=== PATIENT | female | born 1940 | race Caucasian/White ===

== ENCOUNTER 2017-03-10 12:17 | Day surgery (SDC) | payer OTHER ==
[2017-03-08 10:53] LABS: HEMATOCRIT 36.6 % (36.0-48.0); HEMOGLOBIN 12.1 g/dL (12.0-16.0)
[2017-03-08 11:06] LABS: BUN (BLOOD UREA NITROGEN) 18 MG/DL (6-23); CHLORIDE, SERUM 103 MMOL/L (96-112); CO2 (CARBON DIOXIDE) 31 MMOL/L (24-34); CREATININE 1.32 MG/DL (0.55-1.02); GFR AFRICAN AMERICAN 45 ML/MIN (>=60); GFR NON AFRICAN AMERICAN 39 ML/MIN (>=60); GLUCOSE, SERUM 91 MG/DL (60-99); POTASSIUM, SERUM 3.7 MMOL/L (3.5-5.3); SODIUM, SERUM 144 MMOL/L (135-148)
--- NOTE | ~2017-03-10 | OP ---
Record Of Operation [facility] [address] [place]. [address] NAME: ALEXSANDRA HERRING : 36 STATUS : [facility]#: [id number] AGE: 76 ADM/REG DATE : 03/10/17 MR#: [id number] REPORT SERV DATE: 03/11/17 DICTATED BY: Teddy CHIN DATE: 03/11/17 REPORT STATUS : Draft TRANSCRIBED BY: JAY DATE: 03/11/17 DATE OF PROCEDURE: 03/10/2017 PREOPERATIVE DIAGNOSES: 1. Basal cell carcinoma of the nose. 2. Huge defect of the nose secondary to Mohs micrographic surgical excision of basal cell carcinoma of the nose. POSTOPERATIVE DIAGNOSES: 1. Basal cell carcinoma of the nose. 2. Huge defect of the nose secondary to Mohs micrographic surgical excision of basal cell carcinoma of the nose. 3. Lesion, right eyebrow, uncertain behavior, rule out atypia, permanent pathology pending. 4. Forehead skull mass, uncertain behavior, benign appearing, permanent path pending. PROCEDURES: 1. Surgical excisional preparation of nasal defect. 2. Reconstruction of the left nasal ala component of the defect with laterally based nasalis muscle myocutaneous flap, and left ear cartilage graft to left nasal ala. 3. Right paramedian forehead flap reconstruction of nose. 4. Upper nasal rotation flap closure of myocutaneous flap donor site. 5. Large scalp rotation flap closure of paramedian forehead flap donor site. 6. Excision of frontal skull mass. 7. Shave excision of right eyebrow lesion. FINDINGS: 5 cm wide by 3.6 cm tall defect of the nose involving 75% of the nose, including two through and through defects into the left nasal ala, and loss of the left nasal ala rim. INDICATIONS: This 76-year-old female underwent Mohs micrographic surgical excision of basal cell carcinoma of the nose this morning. At a separate consultation, we discussed the pros and cons, alternatives, benefits, risks, limitations, and complications of the anticipated defect following the Mohs surgery. I have received a photograph of the defect following today's excision and it is much more extensive than anticipated. She has not seen the defect. Her has not seen the defect. They did not want to see a photograph of the defect. In the preoperative area, I discussed the pros and cons, alternatives, benefits, risks, limitations, and complications that are associated with probable grafting with skin and cartilage and even more likely a forehead flap reconstruction. I discussed that this would be more likely two stages of reconstruction at least. They understand and wish to proceed. Proper consent obtained. No guarantees expressed. DESCRIPTION OF PROCEDURE: She was taken into the operating room and given general oral endotracheal anesthesia in the supine position. The dressing on her nose was removed revealing the large defect. There was full-thickness loss of the left nasal ala in the mid portion measuring approximately 1 cm. The entire nasal tip and supratip bilaterally along with the nasal dorsum had been excised. This extended also into the right nasofacial Record Of Operation [place] [id number] [facility] [place] [place] [id number] NAME: ALEXSANDRA HERRING : 36 STATUS : [facility] PAT#: [id number] AGE: 76 ADM/REG DATE : 03/10/17 MR#: [id number] REPORT SERV DATE: 03/11/17 DICTATED BY: Teddy CHIN DATE: 03/11/17 REPORT STATUS : Draft TRANSCRIBED BY: JAY DATE: 03/11/17 sulcus. The defect came to within 6 mm of the alar rim on the right. The entire face was prepped along with the left ear and neck with Hibiclens and saline followed by isopropyl alcohol. None of the alcohol got in the wound. The nostrils were cleansed with sterile Q- tips and Hibiclens and saline. Sterile drapes were applied exposing the left ear as well. Options were considered. There was loss of left alar cartilage and just a small layer of nasal vestibular lining, that had two holes through and through, one measuring 3 mm and the other measuring 4 mm. It was felt best that we could first reconstruct the left ala and then obtain a more symmetrical defect for placing a forehead flap. Due to the hairline and the size of the forehead, I felt that the extension of the forehead flap to reconstruct the left alar would put too much jeopardy on the flap as well as the flap would have to be angled on the forehead and that would decrease its vascularity and chances of success. Therefore, a left-sided, laterally based myocutaneous [place]-type flap was outlined. Because the nose did not actively bleed when prepped and had very little oozing, I felt that local injection should not be injected except for nerve blocks. Nerve blocks were done at the infraorbital nerve bilaterally, at the base of the ala bilaterally, and in the supraorbital nerve bilaterally with 0.5% Marcaine with 1:200,000 epinephrine. Attention was then turned back to the myocutaneous flap, which was incised with a #15 and elevated below the level of the muscle and above the level of the perichondrium and periosteum of the nasal skeleton. This was raised and then mobilized and it was felt that this would reconstruct the ala. First the defects into the nasal cavity, one was closed with interrupted 6-0 fast-absorbing gut and the other was left open to allow for any postoperative bleeding to drain out. The myocutaneous flap was then transposed into the alar rim defect and sutured in place with interrupted 6-0 Prolene. The dog-ear deformity laterally from the transposition was not excised in hopes that this would further enhance the vascularity and success of this and it would be excised at the second stage at the same time that the forehead flap was detached. (The patient had already had a left nasolabial flap and left alar reconstruction by another physician at another previous setting). This was either recurrence of tumor or new tumor from the flap that had been placed. Next, an ear cartilage graft from the left ear was obtained in the following fashion. The ear was injected with 0.5% Marcaine with 1:200,000 epinephrine. The conchal bowl was incised at the upper portion of its shoulder and then the skin elevated away from the cartilage to be harvested. This was done in the level above the perichondrium, preserving the perichondrium on the cartilage. On the posterior aspect, the perichondrium was also preserved. This cartilage was removed intact and placed in the left nasal ala immediately. A sponge was placed at the donor site. The cartilage was trimmed at the lateral aspect and a pocket was made to except the cartilage laterally to help secure it. It was secured medially to the opposite intact alar tip cartilage with two buried 6-0 PDS sutures. This gave good contour and support. The lining was secured further with two sutures of 6-0 PDS. The cartilage was anchored to prevent upward motion of the cartilage by securing it to the upper lateral cartilage with 6-0 PDS suture. The donor site of the left ear was closed with 6-0 Prolene followed by a through and through quilting suture of 6-0 Prolene to coapt the skin. Record Of Operation [facility] [address] [place] [address] NAME: ALEXSANDRA HERRING : 36 STATUS : [facility]#: [id number] AGE: 76 ADM/REG DATE : 03/10/17 MR#: [id number] REPORT SERV DATE: 03/11/17 DICTATED BY: Teddy CHIN DATE: 03/11/17 REPORT STATUS : Draft TRANSCRIBED BY: JAY DATE: 03/11/17 The nasalis muscle myocutaneous flap donor site was closed. This was large and was closed with developing bilateral nasal rotation flaps down to the inner canthus on both sides of the nose and rotating these flaps and securing them with 5-0 Vicryl deep and 6-0 Prolene on the skin. A back cut was made up at the rhinion to excise redundancy caused by these rotation flaps. These were closed with 6-0 Vicryl deep and 6-0 Prolene on the skin. At this point, the defect was smaller because of the nasalis muscle myocutaneous flap and the closure of the myocutaneous flap donor site. A template was made of the defect, which was now a more symmetrical defect. This template was made with a foil pack from the suture pack. This was then transposed to the forehead next to the hairline, trying to avoid any hair on the flap. It was felt that this flap would transfer to the nose without pulling it upward. A 1.5 cm pedicle was outlined in the paramedian area and extended vertically to the markings that had been made around the template in the upper paramedian forehead area. The Doppler was brought in and confirmed the location of a good vessel in this pedicle. The forehead flap was then incised with a #15 blade, bevelling it away from the pedicle until the area of the template outlined was reached and then it was a more vertical incision. This forehead flap was then raised in the subgaleal plane down to its origin. The flap was then placed over the defect and continual saline was kept on the flap and nasal defect. (It should be also mentioned that the cartilage that had been implanted on the left alar had also been kept moisturized with saline throughout the procedure). The forehead flap donor site was closed in the lower portion with 4-0 Vicryl. The mid and upper portion could not be closed and then wide flap development was accomplished over the entire forehead over the deep temporal fascia of the temporalis muscle a few centimeters above each ear. This allowed for enough mobility to close the upper forehead defect with 4- 0 and 3-0 Vicryl deep. The dog ear deformity in the scalp was excised and closed with stainless steel hemant. The center of the very defect would not hold deep sutures and the upper forehead was closed with stainless steel hemant. The forehead flap was then trimmed distally for approximately 1 cm to help the edges coapt. The beveled edges of the defect were surgically excisionally excised with a #15C blade to accept the edges properly from the forehead flap. The flap was sutured in place with interrupted 6-0 Prolene sparingly. It also should be mentioned that before the forehead flap was closed, there was a prominence on the forehead skull that is rarely seen. This was removed with the mallet and chisel and sent for permanent pathology. There was a large right lateral eyebrow lesion, which was shave excised and the base cauterized and this was sent for permanent pathology as well. The forehead flap was wrapped with Xeroform gauze, and Telfa was placed at the lateral ala and around the pedicle of the forehead flap. The left ear was treated with Xeroform and a sterile cotton ball, which was then secured Record Of Operation [facility] [address] [place]. [address] NAME: ALEXSANDRA HERRING : 36 STATUS : [facility] PAT#: [id number] AGE: 76 ADM/REG DATE : 03/10/17 MR#: [id number] REPORT SERV DATE: 03/11/17 DICTATED BY: Teddy CHIN DATE: 03/11/17 REPORT STATUS : Draft TRANSCRIBED BY: JAY DATE: 03/11/17 with Dermabond. A piece of Telfa was placed behind the left ear. The forehead was also treated with Mastisol and paper tape in an antitension fashion. She was awakened and extubated, and taken to the recovery room in good condition having tolerated the procedure well. Home going instructions included recheck in the office in five days. She is to avoid laughing, talking, smiling, chewing. She or her are to clean the sutures with Q-tip and peroxide and apply Neosporin ointment. She is to leave all tape intact. Prescriptions were given for hydrocodone, Zofran, and cephalexin. CRISTIANO/JAY Teddy Chin M.D. / [id number] CC: Tommy Prieto M.D.
[~2017-03-10 12:17] MED LIST: AMB10 PO; CALTRA600D PO; CYANO1000T PO; FISH-EPA1000 MG PO; PRILOSEC40 MG PO; PRIN10 PO; RESTASIS OPH; TOVIAZ PO; VESICARE10 MG PO; VITAMIN D400 UNI1 PO; X5 PO; ZOCOR40 PO
== END 2017-03-10 21:03 | disposition home or self-care (01) ==
LOC: SDC 12:17
PROVIDERS: Specialist
PROC: 09UK07Z Supplement Nasal Mucosa and Soft Tissue with Autologous Tissue Substitute, Open Approach (ICD-10-PCS; 2017-03-10)
PROC: 0HX1XZZ Transfer Face Skin, External Approach (ICD-10-PCS; 2017-03-10)
PROC: 0NB00ZX Excision of Skull, Open Approach, Diagnostic (ICD-10-PCS; 2017-03-10)
PROC: 0KX10ZZ Transfer Facial Muscle, Open Approach (ICD-10-PCS; 2017-03-10)
PROC: 0HB1XZZ Excision of Face Skin, External Approach (ICD-10-PCS; principal; 2017-03-10 13:15)
DX: M95.0 Acquired deformity of nose (principal); D23.39 Other benign neoplasm of skin of other parts of face; K21.9 Gastro-esophageal reflux disease without esophagitis; F17.210 Nicotine dependence, cigarettes, uncomplicated; E78.00 Pure hypercholesterolemia, unspecified; M19.90 Unspecified osteoarthritis, unspecified site; I10 Essential (primary) hypertension; Z90.710 Acquired absence of both cervix and uterus; Z98.41 Cataract extraction status, right eye; Z86.73 Personal history of transient ischemic attack (TIA), and cerebral infarction without residual deficits; Z98.42 Cataract extraction status, left eye; Z96.1 Presence of intraocular lens; Z98.890 Other specified postprocedural states
CPT/HCPCS: 80048; 85014; 85018; 88305; 88307; 93005; A9270-GY; J0690; J2250; J2270; J2405; J2710; J3010

== ENCOUNTER 2017-04-02 09:48 | Day surgery (SDC) | payer OTHER ==
[2017-03-30 13:44] LABS: HEMOGLOBIN 11.7 g/dL (12.0-16.0)
[2017-03-30 13:53] LABS: BUN (BLOOD UREA NITROGEN) 20 MG/DL (6-23); CALCIUM, SERUM 9.2 MG/DL (8.5-10.4); CHLORIDE, SERUM 103 MMOL/L (96-112); CO2 (CARBON DIOXIDE) 34 MMOL/L (24-34); CREATININE 1.45 MG/DL (0.55-1.02); GFR AFRICAN AMERICAN 40 ML/MIN (>=60); GFR NON AFRICAN AMERICAN 34 ML/MIN (>=60); GLUCOSE, SERUM 87 MG/DL (60-99); POTASSIUM, SERUM 3.9 MMOL/L (3.5-5.3); SODIUM, SERUM 140 MMOL/L (135-148)
--- NOTE | ~2017-04-02 | OP ---
Record Of Operation [facility] [address] [place]. [address] NAME: ALEXSANDRA HERRING : 36 STATUS : [facility]#: [id number] AGE: 77 ADM/REG DATE : 04/02/17 MR#: [id number] REPORT SERV DATE: 04/02/17 DICTATED BY: Teddy CHIN DATE: 04/02/17 REPORT STATUS : Draft TRANSCRIBED BY: JAY DATE: 04/02/17 DATE OF PROCEDURE: 04/02/2017 PREOPERATIVE DIAGNOSIS: Basal cell carcinoma of the nose, status post first stage reconstruction, following radical excision of basal cell carcinoma by Mohs micrographic surgical excision. POSTOPERATIVE DIAGNOSIS: Basal cell carcinoma of the nose, status post first stage reconstruction, following radical excision of basal cell carcinoma by Mohs micrographic surgical excision. Four raised lesions of the right chin, uncertain behavior, rule out atypia. NAME OF OPERATION: Second stage nasal reconstruction with thinning and rearrangement of forehead flap on the nose and left nasal alar debulking, thinning and flap rearrangement, including dermal fat tissue grafts to the left nasal alar rim. Shave excision 4 lesions of the left chin. FINDINGS: Thick forehead flap in place; myocutaneous left nasal alar flap with pedicle dog ear. Four raised lesions of the chin approximately 6 mm each in a cluster, and they were all approximately 3-4 mm raised. INDICATION: This 77-year-old female underwent Mohs micrographic surgical excision of basal cell carcinoma three and half weeks ago, and this resulted in a huge nasal defect involving 75% of her nose including loss of the left nasal alar rim and ala for approximately 7 mm deep and approximately 1.5 cm wide. She has undergone a forehead flap and nasalis muscle myocutaneous flap with a cartilage graft to left nostril. We now plan our intermediate second-stage reconstruction with thinning of the flap and rearrangement of the flap and further correction of the left nasal ala with flap thinning and rearrangement. She understands and wishes to proceed. Proper consent obtained. The pros and cons, alternatives, benefits, risks, limitations, and complications were discussed for our second-stage reconstruction. No guarantees expressed. Proper consent obtained. She wished to proceed. DESCRIPTION OF PROCEDURE: She was taken into the operating room and given general oral endotracheal anesthesia in supine position. Sterile prep was performed with Hibiclens and saline followed by isopropyl alcohol. Sterile drapes were applied. First, the left nasal alar myocutaneous flap was incised where it was twisted on itself and excess excised. It was then carefully thinned and the flap was rearranged. The nostril was retracted at the rim, and a pocket was made over the alar rim and soft-tissue dermis and fat as the tissue graft was then placed by placing a suture through the nostril rim and then through the tissue graft and then back out through the nostril rim, tying the suture along the nostril rim pulling the graft to the nostril rim subcutaneously. The wound was closed. The flap was rearranged and sutured in place with 6-0 Prolene loosely, allowing an area to Record Of Operation [address] [place]. [address] NAME: ALEXSANDRA HERRING : 36 STATUS : [facility] PAT#: [id number] AGE: 77 ADM/REG DATE : 04/02/17 MR#: [id number] REPORT SERV DATE: 04/02/17 DICTATED BY: Teddy CHIN DATE: 04/02/17 REPORT STATUS : Draft TRANSCRIBED BY: JAY DATE: 04/02/17 be opened to allow for drainage and to prevent excess scar tissue in the new alar crease area. A plastic "button" was made to fit on the inside the nostril and a plastic V-shaped "button" was placed on the outside in the alar crease, and this was sewn through and through with a 5-0 Prolene suture to act as a compression to help keep these flaps down and to hopefully create a new alar crease. The forehead flap on the nose was incised on the right side starting from the facet area and traveling up to the attachment of the floor of flap to the nose. This was carefully raised with approximately 3-4 mm of fat on the flap. After this was raised all the way over to the left side where it had been sutured to the myocutaneous flap into the lateral nasal sidewall, the remaining soft tissue of fat and muscle and the galea was then carefully excised from the nasal skeleton to give the definition to the nose. The flap was rearranged to eliminate the twist of the nose and sutured back in place with interrupted 6-0 Prolene as well as quilting sutures of 6-0 Prolene that went through and through into the nasal cavity and back out as quilting sutures. The hemostasis was excellent. She had four raised lesions on the left chin that were clustered together. We called her , and he agreed that we could remove these. I felt it was boyce because of her history of cancer and to be sure that these are not cancers. They were all injected with 1% Xylocaine with 1:100,000 epinephrine and shave excised. The base was cauterized. They were sent as lesion 1, lesion 2, lesion 3, lesion #4. This was from right to the left top to bottom. The base was lightly cauterized. Mastisol and paper tape were applied in antitension fashion. A small piece of Telfa was placed over the nose and taped in place with Micropore tape. She was awakened and extubated and taken to the recovery room in good condition having tolerated procedure well. Home going instructions include keeping the dressing in place until tomorrow and then she can begin utilizing her anti-bacterial ointment and Q-Tips and peroxide as she had been doing for the last three weeks. She is to see me back in the office in 6 days. She has prescriptions already for cephalexin, Phenergan, and hydrocodone at home. CRISTIANO/JAY Teddy Chin M.D. / [id number] CC: Tommy Prieto M.D.
== END 2017-04-02 21:10 | disposition home or self-care (01) ==
LOC: SDC 09:48
PROVIDERS: Specialist
PROC: 0HX1XZZ Transfer Face Skin, External Approach (ICD-10-PCS; 2017-04-02)
PROC: 0HB1XZZ Excision of Face Skin, External Approach (ICD-10-PCS; 2017-04-02)
PROC: 09UK07Z Supplement Nasal Mucosa and Soft Tissue with Autologous Tissue Substitute, Open Approach (ICD-10-PCS; principal; 2017-04-02 12:00)
DX: M95.0 Acquired deformity of nose (principal); D23.39 Other benign neoplasm of skin of other parts of face; E78.00 Pure hypercholesterolemia, unspecified; I12.9 Hypertensive chronic kidney disease with stage 1 through stage 4 chronic kidney disease, or unspecified chronic kidney disease; K21.9 Gastro-esophageal reflux disease without esophagitis; N18.3 Chronic kidney disease, stage 3 (moderate); D64.9 Anemia, unspecified; Z86.73 Personal history of transient ischemic attack (TIA), and cerebral infarction without residual deficits; Z80.1 Family history of malignant neoplasm of trachea, bronchus and lung; Z79.52 Long term (current) use of systemic steroids; Z79.899 Other long term (current) drug therapy; Z98.41 Cataract extraction status, right eye; Z98.42 Cataract extraction status, left eye; Z98.890 Other specified postprocedural states; Z90.710 Acquired absence of both cervix and uterus
CPT/HCPCS: 80048; 85014; 85018; 88305; 93005; A9270-GY; J0690; J2405; J2710; J3010

== ENCOUNTER 2017-04-24 14:00 | Day surgery (SDC) | payer OTHER ==
[2017-04-22 12:09] LABS: HEMATOCRIT 32.2 % (36.0-48.0); HEMOGLOBIN 10.8 g/dL (12.0-16.0)
[2017-04-22 12:21] LABS: BUN (BLOOD UREA NITROGEN) 21 MG/DL (6-23); CALCIUM, SERUM 8.7 MG/DL (8.5-10.4); CHLORIDE, SERUM 104 MMOL/L (96-112); CO2 (CARBON DIOXIDE) 30 MMOL/L (24-34); CREATININE 1.66 MG/DL (0.55-1.02); GFR AFRICAN AMERICAN 34 ML/MIN (>=60); GFR NON AFRICAN AMERICAN 29 ML/MIN (>=60); GLUCOSE, SERUM 90 MG/DL (60-99); SODIUM, SERUM 142 MMOL/L (135-148)
--- NOTE | ~2017-04-24 | OP ---
Record Of Operation [facility] [address] [place]. [address] NAME: ALEXSANDRA HERRING : 36 STATUS : [facility]#: [id number] AGE: 77 ADM/REG DATE : 04/24/17 MR#: [id number] REPORT SERV DATE: 04/29/17 DICTATED BY: Teddy CHIN DATE: 04/29/17 REPORT STATUS : Draft TRANSCRIBED BY: JAY DATE: 04/29/17 DATE OF PROCEDURE: 04/24/2017 PREOPERATIVE DIAGNOSES: 1. Basal cell carcinoma of the nose. 2. Huge defect of the nose secondary to Mohs micrographic surgical excision of basal cell carcinoma. 3. Status post stage one and second intermediate stage reconstruction of the nose, now presenting for third stage reconstruction. 4. Multiple facial lesions, uncertain behavior, rule out atypia. POSTOPERATIVE DIAGNOSES: 1. Basal cell carcinoma of the nose. 2. Huge defect of the nose secondary to Mohs micrographic surgical excision of basal cell carcinoma. 3. Status post stage one and second intermediate stage reconstruction of the nose, now presenting for third stage reconstruction. 4. Multiple facial lesions, uncertain behavior, rule out atypia. NAME OF OPERATION: 1. Division and inset of right paramedial forehead flap on the nose, with flap thinning and flap rearrangement. 2. Surgical excisional preparation of nasal recipient site. 3. Left nasal alar flap rearrangement in the area of the left alar crease, where previous myocutaneous flap reconstruction had been performed at stages I and stage II. 4. Forehead flap pedicle donor site reconstruction with glabellar rotation flap to correct eyebrow asymmetry and obtain closure. 5. Shave excision lesions of the left lateral alevism, left mid forehead, right forehead near brow, right mid-mandibular border, right medial inferior orbital rim, left medial cheek, edge of forehead flap near the alar crease, and left mid nasal dorsum of the forehead flap. FINDINGS: Viable forehead flap in place; effaced left alar crease; multiple facial lesions with crusting and suspicion for atypia. INDICATIONS: This 77-year-old female underwent Mohs micrographic surgery to remove basal cell carcinoma of the nose approximately 6 weeks ago. This resulted in a huge defect of the nose including loss of the left alar margin. She underwent a first-stage reconstruction with a left-sided [place] type myocutaneous flap and ear cartilage graft along with a right paramedian forehead flap. Approximately three and half weeks ago, she underwent her second intermediate stage II thinning and rearranged the forehead flap. She now presents for her third and possibly final stage of nasal reconstruction with attachment of the forehead flap, thinning of the forehead flap, and rearrangement of forehead flap along with removal of multiple facial lesions that are suspicious. The pros and cons, alternatives, benefits, risks, limitations, and complications were discussed at length with the patient. No guarantees expressed. She understands and wished to proceed. Proper consent obtained. Record Of Operation [facility] [id number] [facility] [place]. [address] NAME: ALEXSANDRA HERRING : 36 STATUS : [facility]#: [id number] AGE: 77 ADM/REG DATE : 04/24/17 MR#: [id number] REPORT SERV DATE: 04/29/17 DICTATED BY: Teddy CHIN DATE: 04/29/17 REPORT STATUS : Draft TRANSCRIBED BY: JAY DATE: 04/29/17 DESCRIPTION OF PROCEDURE: She was taken into the operating room and given general oral endotracheal anesthesia in the supine position. The nose was prepped meticulously with Hibiclens and saline except near the areas where it would get possibly in her eyes and that was done with dilute Betadine "Tea" (Betadine solution mixed with saline). The nostrils were likewise prepped with these solutions followed by isopropyl alcohol. None of these solutions got in her eyes. Sterile drapes were applied. It should be noted that the upper neck bilaterally was prepped as well. She had multiple facial lesions that were suspicious for atypia and since she has had such extensive cancer of her nose, it is boyce to remove these other lesions for pathological diagnosis. These were all marked with a marking pen, and they were shave excised and the base cauterized and sent for permanent pathology. They had been injected with 1% Xylocaine with 1:100,000 epinephrine prior to removal. They were all sent in properly labeled containers for permanent pathology. The locations were mentioned in the procedure portion of the operative summary above. Next, the forehead flap pedicle was divided. The stump was cauterized approximately 1.5 cm from its origin. Next, the forehead flap incision as it was healing on the nose was incised from the area of the medial right nasal alar crease up the nasal sidewall. The left nasal sidewall was also incised and the forehead flap uncurled and raised for approximately 50% of the flap. It was systematically thinned. The recipient site was treated with #15 blade to create new fresh margins for proper closure of the detached forehead flap to the nasal skin. The flap was incrementally trimmed and rearranged and rotated to allow this to sit in nicely into the reconstructive nose. The soft tissue and fibrous tissue and cicatrix were excised down to the nasal bony and cartilaginous skeleton. Oozing was steady throughout indicating good blood supply had been obtained through ingrowth of blood vessels from the nose into the flap. The flap was trimmed appropriately and then sutured in place with interrupted 6-0 Prolene. Hemostasis was excellent at this time with just gentle pressure. The base of the pedicle reconstruction was then undertaken. The stump was resected. A medial glabellar rotation flap was developed approximately 1 cm x 2.5 cm. This was rotated in a fashion to allow the brow to match the other brow. Hemostasis was obtained with electrocautery. The flaps were sewn together with 6-0 Vicryl deep and 6-0 Prolene on the skin. This excision went down to the root of the nose on the right. The wounds were cleansed with hydrogen peroxide. Mastisol and paper tape covered all the shave excision of skin lesions. The nose was treated with Mastisol paper tape, nasal metal splint, and paper tape securing this in place. The skin edges of the glabellar flap were coapted with 6-0 Prolene. Mastisol and paper tape were applied in that area as well. Prior to placing the tape and splint, the left nasal alar area was addressed. The alar crease had been effaced by the myocutaneous flap. The crease was now ready to be redefined. Record Of Operation [facility] [address] [facility] [place]. [address] NAME: ALEXSANDRA HERRING : 36 STATUS : [facility]#: [id number] AGE: 77 ADM/REG DATE : 04/24/17 MR#: [id number] REPORT SERV DATE: 04/29/17 DICTATED BY: Teddy CHIN DATE: 04/29/17 REPORT STATUS : Draft TRANSCRIBED BY: JAY DATE: 04/29/17 An incision was made in the approximate area of new nasal alar crease. This was an 8 mm incision. Dissection was carried down in this area to remove the subcutaneous fat and some muscle from the myocutaneous flap to allow the fullness of the distal nasal sidewall where it met the new alar crease to be less full. The tissue was incrementally removed, and this flap that was created in the left lower nasal sidewall was then rearranged and sutured in place with a through and through suture of 6-0 Prolene, going into the nasal cavity and then back out of the nasal cavity to keep this flap from raising up. This flap rearrangement as well as removal of the deep tissue, in hopes that we would obtain a new alar crease, created deficiency and gap at the area of the nasal alar crease. This was allowed to remain open to heal by secondary intention. This would allow this area to drain as well and hopefully still have an indentation for a new alar crease. She tolerated the procedure well and was awakened and extubated and taken to recovery room in good condition. Estimated blood loss was 10 mL. Home going instructions were to continue her cephalexin, take hydrocodone p.r.n. pain. She has Phenergan at home if she needs it. She is to keep the tape dry and intact and recheck in the office in 5 days. CRISTIANO/JAY Teddy Chin M.D. / [id number] CC: Tommy Prieto M.D.
== END 2017-04-24 23:59 | disposition home or self-care (01) ==
LOC: SDC 14:00
PROVIDERS: Specialist
PROC: 0HB1XZZ Excision of Face Skin, External Approach (ICD-10-PCS; 2017-04-24)
PROC: 0HX1XZZ Transfer Face Skin, External Approach (ICD-10-PCS; principal; 2017-04-24 09:45)
PROC: 0JX10ZZ Transfer Face Subcutaneous Tissue and Fascia, Open Approach (ICD-10-PCS; 2017-04-24 09:45)
PROC: 0KX10ZZ Transfer Facial Muscle, Open Approach (ICD-10-PCS; 2017-04-24 09:45)
DX: L82.1 Other seborrheic keratosis (principal); L57.0 Actinic keratosis; D22.39 Melanocytic nevi of other parts of face; E78.00 Pure hypercholesterolemia, unspecified; M19.90 Unspecified osteoarthritis, unspecified site; K21.9 Gastro-esophageal reflux disease without esophagitis; I12.9 Hypertensive chronic kidney disease with stage 1 through stage 4 chronic kidney disease, or unspecified chronic kidney disease; N18.9 Chronic kidney disease, unspecified; S09.92XD Unspecified injury of nose, subsequent encounter; C44.311 Basal cell carcinoma of skin of nose; D49.2 Neoplasm of unspecified behavior of bone, soft tissue, and skin; M95.0 Acquired deformity of nose; Z86.73 Personal history of transient ischemic attack (TIA), and cerebral infarction without residual deficits; Z98.890 Other specified postprocedural states; Z90.710 Acquired absence of both cervix and uterus; Z98.41 Cataract extraction status, right eye; Z79.899 Other long term (current) drug therapy; Z98.42 Cataract extraction status, left eye
CPT/HCPCS: 80048; 85014; 85018; 88305; J0690; J2250; J2405; J2710; J3010